=== PATIENT | female | born 1990 | race African-American/Black ===

== ENCOUNTER 2019-04-23 17:08 | Emergency (ER) | payer SELFPAY ==
[~2019-04-23] VITALS: Ht 170.2 cm; Wt 85.0 kg
[2019-04-23 18:01] VITALS: BP 134/74
== END 2019-04-23 19:26 | disposition left against medical advice (07) ==
LOC: ER 17:08
DX: Z53.21 Procedure and treatment not carried out due to patient leaving prior to being seen by health care provider (principal)